=== PATIENT | female | born 1955 ===

== ENCOUNTER 2017-09-26 10:52 | Emergency (ER) | payer OTHER ==
[2017-09-26 11:12] VITALS: BP 112/61
--- NOTE | 2017-09-26 11:19 | UC ---
Bite Injury/Animal HPI - HPI Summary HPI Summary: A 62 y/o F presents to [facility] s/p cat bite from her cat yesterday. The 2nd digit of the patient's R hand is erythematous, edematous, and purulent. Pain is rated 8/10. Denies fever. Patient is unsure of her last tetanus shot. - History of Current Complaint Chief Complaint: UCBiteInjury Stated Complaint: CAT BITE Time Seen by Provider: 09/26/17 11:08 Hx Obtained From: Patient, Family/Pattern Stamper - daughter present Severity Currently: Moderate Severity Initially: Severe Pain Intensity: 8 Pain Scale Used: 0-10 Numeric Onset/Duration: Sudden Onset, Lasting Days - yesterday, Still Present Type of Bite: Pet - cat Character: Puncture Associated Signs And Symptoms: Positive: Erythema, Drainage, Swelling. Negative : Fever Animal Available for Observation: Yes - Allergies/Home Medications Allergies/Adverse Reactions: Allergies Allergy/AdvReac Type Severity Reaction Status Date / Time No Known Allergies Allergy Verified 09/26/17 11:12 PMH/Surg Hx/FS Hx/Imm Hx Previously Healthy: Yes Other Endocrine History: no DM Other Respiratory History: no COPD - Surgical History Surgical History: Yes Surgery Procedure, Year, and Place: appy - Family History Known Family History: Positive: Hypertension - mother - Social History Occupation: Retired Lives: With Family Alcohol Use: None Substance Use Type: Marijuana Smoking Status (MU): Former Smoker When Did the Patient Quit Smoking/Using Tobacco: 45 years Household Exposure Type: Cigarettes Review of Systems Constitutional: Negative - fever Musculoskeletal: Edema - to R 2nd digit, Other: - pain, erythema and purulent discharge to R 2nd digit All Other Systems Reviewed And Are Negative: Yes Physical Exam - Summary Physical Exam Summary: VITAL SIGNS: Reviewed. GENERAL: Patient is a well-developed and nourished FEMALE who is lying comfortable in the stretcher. Patient is not in any acute respiratory distress. HEAD AND FACE: Normocephalic EYES: PERRLA, EOMI x 2. EARS: Hearing grossly intact. MOUTH: Oropharynx within normal limits. NECK: Supple, trachea is midline, no adenopathy, no JVD, no carotid bruit. CHEST: Symmetric, no tenderness at palpation LUNGS: Clear to auscultation bilaterally. No wheezing or crackles. CVS: Regular rate and rhythm, S1 and S2 present, no murmurs or gallops appreciated. ABDOMEN: Soft, non-tender. Bowel sounds are normal. No abdominal abnormal pulsations. EXTREMITIES: Full ROM in all major joints, no cyanosis or clubbing. There is swelling in dorsal aspect of 2nd R digit. There is no tenderness along the flexor of the R 2nd digit. NEURO: Alert and oriented x 3. No acute neurological deficits. Speech is normal and follows commands. SKIN: Dry and warm. Triage Information Reviewed: Yes Vital Signs: Initial Vital Signs Temp 98.0 F 09/26/17 11:07 Pulse 68 09/26/17 11:07 Resp 18 09/26/17 11:07 BP 112/61 09/26/17 11:07 Pulse Ox 96 09/26/17 11:07 Vital Signs Reviewed: Yes Bite Injury Course/Dx - Course Course Of Treatment: This patient is a 62-year-old female who presents to the emergency department with a cat bite. In the right second digit. The patient is able to flex and extend the digit and she has little swelling and redness in the dorsum aspect of the digit. I do not believe that the patient has tenosynovitis at this time. However, the patient seems to have an infected wound. Therefore the patient will be given a prescription for Augmentin. She was also given instructions to return to the urgent care or go to the emergency department if the patient develops increasing pain, swelling and unable to flex the finger. The patient understands and agrees. She doesn't remember what was her last tetanus vaccine therefore the patient was given a tetanus booster. Patient is hemodynamically stable alert oriented 3. All questions and concerns were addressed. - Differential Dx/Diagnosis Provider Diagnoses: Cellulitis Discharge - Sign-Out/Discharge Documenting (check all that apply): Patient Departure - DC All imaging exams completed and their final reports reviewed: No Studies - Discharge Plan Condition: Stable Disposition: HOME Prescriptions: Amoxicillin/Clavulanate TAB* [Augmentin TAB 875*] 875 mg PO BID #20 tab Patient Education Materials: Cellulitis (ED) Referrals: [facility] [Outside] Serjio Feliciano MD [Medical Doctor] - No Primary Care Phys,NOPCP [Primary Care Provider] - Additional Instructions: Take medications as instructed and adhere to plan Take Acetaminophen or ibuprofen for pain or fever Increase your fluid intake Return to the or go to the emergency department if symptoms worsen Follow-up with primary care physician in next 2-3 days - Billing Disposition and Condition Condition: STABLE Disposition: Home - Attestation Statements Document Initiated by Abiolaibmargret: Yes Documenting Scribe: Madhavi Rivero Provider For Whom Abiolaibmargret is Documenting (Include Credential): Daniel Persaud MD Scribe Attestation: IMadhavi, scribed for Daniel Persaud MD on 09/26/17 at 1141. Scribe Documentation Reviewed: Yes Provider Attestation: The documentation as recorded by the Madhavi payne accurately reflects the service I personally performed and the decisions made by , Daniel Persaud MD
[2017-09-26] MEDS ORDERED: Amoxicillin/Clavulanate TAB* 875 MG PO ONE (11:23)
[2017-09-26] MEDS ORDERED: Tetan/Diph/Pertus SYR(Tdap)* 0.5 ML SYR(BOOSTRIX) use SYR IM ONE (11:25)
== END 2017-09-26 11:49 | disposition home or self-care (01) ==
LOC: UCEAST 10:52
DX: L03.011 Cellulitis of right finger (principal); Z87.891 Personal history of nicotine dependence
CPT/HCPCS: 90471; 90715; 99202; A9270-GY; G0463